=== PATIENT | female | born 1965 | race Caucasian/White ===

== ENCOUNTER 2024-06-04 14:30 | Emergency (ER) | payer BC ==
[~2024-06-04] VITALS: Ht 160 cm; Wt 106.1 kg
[2024-06-04 14:43] VITALS: BP_SYST 145; PULSE 91; RESP 18; TEMP 98.7; O2SAT 100
[2024-06-04 15:24] LABS: BASOPHILS % (AUTO) 0.5 % (0.0-2.0); EOSINOPHILS # (AUTO) 0.2 K/uL (0.0-0.4); EOSINOPHILS % (AUTO) 2.3 % (0.0-4.0); HEMATOCRIT 41.6 % (36-48); HEMOGLOBIN 14.3 g/dL (12.0-16.0); LYMPHOCYTES % (AUTO) 41.1 % (20.5-51.5); MEAN CORPUSCULAR HEMOGLOBIN 32 pg (27-31); MEAN CORPUSCULAR HGB CONC 34 % (32-36); MEAN CORPUSCULAR VOLUME 93 fL (79.0-98.0); MONOCYTES # (AUTO) 0.6 K/uL (0.0-1.0); MONOCYTES % (AUTO) 7.5 % (1.7-9.3); NEUTROPHILS # (AUTO) 3.6 K/uL (1.8-7.7); NEUTROPHILS % (AUTO) 48.6 % (40.0-70.0); PLATELET COUNT (AUTO) 280 K/uL (130-430); RED BLOOD CELL COUNT(AUTO) 4.47 MIL/uL (4.2-6.2); RED CELL DISTRIBUTION WIDTH 13.9 % (9.0-15.0); WHITE BLOOD COUNT (AUTO) 7.4 K/uL (4.8-10.8)
[2024-06-04 15:28] LABS: ERYTHROCYTE SEDIMENTATION RATE 5 MM/HR (0-20)
[2024-06-04 15:37] LABS: PROTHROMBIN TIME 10.3 SECS (9.5-12.5)
[2024-06-04 15:49] LABS: CALCIUM 9.7 mg/dL (8.4-11.0); CREATININE 0.75 mg/dL (0.55-1.30); POTASSIUM 3.9 mmol/L (3.5-5.1)
[2024-06-04] MEDS: DIPHENHYDRAMINE INJ 50 MG/ML VIAL IVP ONE (17:04)
[2024-06-04] MEDS: METOCLOPRAMIDE HCL 10 MG/2 ML VIAL IVP ONE (17:05)
[2024-06-04] MEDS ORDERED: HYDR-3927 PO (17:06)
[2024-06-04] MEDS ORDERED: IBUP-1969 PO (17:06)
[2024-06-04] MEDS ORDERED: METOCLOPRAMIDE HCL 10 MG/2 ML VIAL ONE (17:06)
[2024-06-04] MEDS ORDERED: DIPHENHYDRAMINE INJ 50 MG/ML VIAL ONE (17:06)
[2024-06-04 17:40] VITALS: BP_SYST 145; PULSE 91; RESP 18; TEMP 98.7; O2SAT 100
== END 2024-06-04 17:40 | disposition home or self-care (01) ==
LOC: SED 14:30
DX: R51.9 Headache, unspecified (principal); Z79.02 Long term (current) use of antithrombotics/antiplatelets
CPT/HCPCS: 99285; 96374; 70450; 96375; 80048; 85025; 85610; 85651; 85730; 36415; 82397; J1200; J2765